=== PATIENT | female | born 1955 | race American Indian/Alaskan Native ===

== ENCOUNTER 2019-09-10 13:17 | Emergency (ER) | payer OTHER ==
[2019-09-10] MEDS ORDERED: Ketorolac 10 MG Tab PO ONE (13:18)
--- NOTE | 2019-09-10 13:44 | EDM.PDOC ---
ED HPI GENERAL MEDICAL PROBLEM - General Chief Complaint: Lower Extremity Injury/Pain Stated Complaint: "Left and right knee pain" Time Seen by Provider: 09/10/19 13:25 Source of Information: Reports: Patient History Limitations: Reports: No Limitations - History of Present Illness INITIAL COMMENTS - FREE TEXT/NARRATIVE: Patient to the emergency department where she advises that she thinks she tripped which caused her to fall on this past Thursday and today complains of increased pain to both knees and both ankles. The patient denies hitting her head, there is no loss of consciousness. The patient denies any unusual neck, back pain or stiffness she denies any hip or pelvis pain she denies any upper extremity pain that is not unusual. The patient has no numbness or tingling to her extremities. She does have some mild swelling to the left knee which she advises is somewhat chronic ever since she had surgery in 2013 on the knee. She denies any other symptoms. She denies being seen for these complaints after the fall. Onset: Sudden Duration: Day(s): (5 days ago) Location: Reports: Lower Extremity, Left, Lower Extremity, Right. Denies: Head , Neck, Chest, Abdomen, Back, Pelvis Quality: Reports: Ache Severity: Mild Improves with: Reports: None Worsens with: Reports: Movement Associated Symptoms: Reports: No Other Symptoms. Denies: Headaches, Nausea/ Vomiting, Weakness Treatments RIVET TESTER: Reports: NSAIDS - Related Data Allergies Allergy/AdvReac Type Severity Reaction Status Date / Time No Known Allergies Allergy Verified 09/10/19 14:10 Home Meds: Home Meds Celecoxib 200 mg PO DAILY 04/28/15 [History] Levothyroxine Sodium 1 tab PO DAILY 04/28/15 [History] Losartan/Hydrochlorothiazide [Losartan-HCTZ 100-25 MG] 1 each PO DAILY 04/28/15 [History] Potassium Chloride 1 tab PO DAILY 04/28/15 [History] Simvastatin 1 tab PO DAILY 04/28/15 [History] glipiZIDE [Glipizide ER] 1 tab PO DAILY 04/28/15 [History] metFORMIN [Glucophage] 1 tab PO BID 04/28/15 [History] Ferrous Sulfate [Feosol] 325 mg PO DAILY #30 tablet 05/02/15 [Rx] Review of Systems - Review of Systems Review Of Systems: See Below Constitutional: Reports: No Symptoms Respiratory: Reports: No Symptoms. Denies: Shortness of Breath Cardiovascular: Reports: No Symptoms. Denies: Chest Pain, Edema GI/Abdominal: Reports: No Symptoms. Denies: Abdominal Pain, Nausea, Vomiting Musculoskeletal: Reports: Joint Pain (bilateral knee and ankle pain). Denies: Neck Pain, Back Pain Skin: Reports: No Symptoms. Denies: Rash, Erythema, Wound, Change in Color Neurological: Reports: No Symptoms. Denies: Numbness, Tingling Psychiatric: Reports: No Symptoms ED EXAM, GENERAL - Physical Exam Exam: See Below Exam Limited By: No Limitations General Appearance: Alert, WD/WN, No Apparent Distress Ears: Normal External Exam Nose: Normal Inspection Throat/Mouth: Normal Inspection Head: Atraumatic, Normocephalic Neck: Normal Inspection, Supple, Non-Tender, Full Range of Motion Respiratory/Chest: No Respiratory Distress, Lungs Clear, Normal Breath Sounds Cardiovascular: Normal Peripheral Pulses, Regular Rate, Rhythm Peripheral Pulses: 2+: Radial (L), Posterior Tibial (L), Posterior Tibial (R) Extremities: Normal Range of Motion, No Pedal Edema, Normal Capillary Refill, Joint Swelling (left knee, advised this is chronic s/p surg left knee 2013) Neurological: Alert, Oriented, Normal Cognition, Normal Gait, No Motor/Sensory Deficits Psychiatric: Normal Affect, Normal Mood Skin Exam: Warm, Dry, Intact, Normal Color Course - Vital Signs Text/Narrative:: The patient was evaluated in the emergency department x-rays of both knees and both ankles were obtained is does not show any acute fracture dislocation there are some significant degenerative changes. The radiology reading is still pending. The patient will be discharged home she will be given Toradol 10 mg 3 times daily as needed. She is advised to follow-up in the clinic within the next week for reevaluation and return to the emergency department sooner if worse or any problems Last Recorded V/S: Last Vital Signs Temp 37.8 C 09/10/19 13:51 Pulse 104 H 09/10/19 13:51 Resp 20 09/10/19 13:51 BP 139/62 09/10/19 13:51 Pulse Ox 100 09/10/19 13:51 - Orders/Labs/Meds Orders: Active Orders 24 hr Category Date Time Status Ankle Min 3V Lt [CR] Stat Exams 09/10/19 13:34 Ordered Ankle Min 3V Rt [CR] Stat Exams 09/10/19 13:34 Ordered Knee 1V or 2V Lt [CR] Stat Exams 09/10/19 13:34 Ordered Knee 1V or 2V Rt [CR] Stat Exams 09/10/19 13:34 Ordered Ketorolac [Take Home: Ketorolac 10 MG, 4 Tab Pack] Med 09/10/19 14:12 Once 2 packet PO ONETIME ONE Medication Orders Ketorolac Tromethamine (Take Home: Ketorolac 10 Mg, 4 Tab Pack) 2 packet PO ONETIME ONE Stop: 09/10/19 14:13 Meds: Medications Generic Name Dose Route Start Last Admin Trade Name Freq PRN Reason Stop Dose Admin Ketorolac Tromethamine 2 packet 09/10/19 14:12 Take Home: Ketorolac 10 Mg, 4 Tab Pack PO 09/10/19 14:13 ONETIME ONE Departure - Departure Time of Disposition: 14:10 Disposition: Home, Self-Care 01 Condition: Good Clinical Impression: Fall, Knee sprain, bilateral, Right ankle sprain, Left ankle sprain - Discharge Information *PRESCRIPTION DRUG MONITORING PROGRAM REVIEWED*: Not Applicable *COPY OF PRESCRIPTION DRUG MONITORING REPORT IN PATIENT JUHI: Not Applicable Instructions: Ankle Sprain, [id number], Knee Sprain, Adult Forms: ED Department Discharge Additional Instructions: Rest Toradol 10 mg every 8 hours as needed for pain Follow-up in the clinic over the next week for reevaluation Return to the emergency department sooner if worse or any problems Sepsis Event Note - Focused Exam Vital Signs: Vital Signs Temp Pulse Resp BP Pulse Ox 09/10/19 13:51 37.8 C 104 H 20 139/62 100 Date Exam was Performed: 09/10/19 Time Exam was Performed: 14:13 - Problem List & Annotations (1) Fall SNOMED Code(s): 8362961, 013507290 Code(s): W19.XXXA - UNSPECIFIED FALL, INITIAL ENCOUNTER Status: Acute Priority: Medium Qualifiers: Encounter type: initial encounter Qualified Code(s): W19.XXXA - Unspecified fall, initial encounter (2) Knee sprain, bilateral SNOMED Code(s): 08195270 Code(s): S83.91XA - SPRAIN OF UNSPECIFIED SITE OF RIGHT KNEE, INITIAL ENCOUNTER; S83.92XA - SPRAIN OF UNSPECIFIED SITE OF LEFT KNEE, INITIAL ENCOUNTER Status: Acute Priority: Medium (3) Left ankle sprain SNOMED Code(s): 72653163, [id number] Code(s): S93.402A - SPRAIN OF UNSPECIFIED LIGAMENT OF LEFT ANKLE, INIT ENCNTR Status: Acute Priority: Medium Qualifiers: Encounter type: initial encounter (4) Right ankle sprain SNOMED Code(s): 68328158 Code(s): S93.401A - SPRAIN OF UNSPECIFIED LIGAMENT OF RIGHT ANKLE, INIT ENCNTR Status: Acute Priority: Medium Qualifiers: Encounter type: initial encounter - Problem List Review Problem List Initiated/Reviewed/Updated: Yes - My Orders Last 24 Hours: My Active Orders 09/10/19 13:34 Ankle Min 3V Lt [CR] Stat Ankle Min 3V Rt [CR] Stat Knee 1V or 2V Lt [CR] Stat Knee 1V or 2V Rt [CR] Stat 09/10/19 14:12 Ketorolac [Take Home: Ketorolac 10 MG, 4 Tab Pack] 2 packet PO ONETIME ONE - Assessment/Plan Last 24 Hours: My Active Orders 09/10/19 13:34 Ankle Min 3V Lt [CR] Stat Ankle Min 3V Rt [CR] Stat Knee 1V or 2V Lt [CR] Stat Knee 1V or 2V Rt [CR] Stat 09/10/19 14:12 Ketorolac [Take Home: Ketorolac 10 MG, 4 Tab Pack] 2 packet PO ONETIME ONE Plan: As above
[2019-09-10 13:52] VITALS: BP 139/62; PULSE 104
[2019-09-10] MEDS ORDERED: Take Home: Ketorolac 10 MG Tab, 4 Tab Pack PO ONE (14:12)
== END 2019-09-10 14:37 | disposition home or self-care (01) ==
LOC: CC.ED 13:17
DX: S93.401A Sprain of unspecified ligament of right ankle, initial encounter (principal); S93.402A Sprain of unspecified ligament of left ankle, initial encounter; S83.91XA Sprain of unspecified site of right knee, initial encounter; S83.92XA Sprain of unspecified site of left knee, initial encounter; Z79.899 Other long term (current) drug therapy; W01.0XXA Fall on same level from slipping, tripping and stumbling without subsequent striking against object, initial encounter
CPT/HCPCS: 73560-LT; 73560-RT; 73610-LT; 73610-RT; 99283-25; A9270-GY

== ENCOUNTER → 2022-08-29 | Day surgery (SDC) | payer MEDICARE, OTHER ==
[~2022-08-29] MED LIST: Lidocaine 2% 20 ML MDV ONE; Midazolam 1 MG/ML 2 ML SDV ONE; Propofol 200 MG/20 ML SDV ONE; fentaNYL 50 MCG/ML SDV ONE
[2022-08-29] MEDS: Lactated Ringers 1,000 ML IV SCH (07:44)
[2022-08-29 10:05] VITALS: BP 100/62; PULSE 63
== END ==
LOC: CC.SDS 07:15
PROVIDERS: ATTEND Family Medicine
DX: Z12.11 Encounter for screening for malignant neoplasm of colon (principal); K29.50 Unspecified chronic gastritis without bleeding; K31.89 Other diseases of stomach and duodenum; K21.00 Gastro-esophageal reflux disease with esophagitis, without bleeding; K57.30 Diverticulosis of large intestine without perforation or abscess without bleeding; D50.9 Iron deficiency anemia, unspecified; F32.A Depression, unspecified; I10 Essential (primary) hypertension; E78.5 Hyperlipidemia, unspecified; E03.9 Hypothyroidism, unspecified; E11.9 Type 2 diabetes mellitus without complications; Z79.84 Long term (current) use of oral hypoglycemic drugs; Z79.899 Other long term (current) drug therapy
CPT/HCPCS: 87081; 88305; J2250; J2704; J3010; J3490; J7120

== ENCOUNTER 2024-04-18 22:04 | Emergency (ER) | payer MEDICARE, OTHER ==
[2024-04-18 22:53] VITALS: PULSE 75
[2024-04-18] MEDS: Losartan 25 MG Tab PO SCH (22:57)
[2024-04-18 22:58] VITALS: BP 167/77
[2024-04-18] MEDS: Acetaminophen/HYDROcodone 325-5 MG Tab PO ONE (22:58)
[2024-04-18] MEDS: Take Home: Acetaminophen/HYDROcodone 325-5 MG, 2 Tab Pack PO ONE (22:58)
== END 2024-04-18 23:11 | disposition home or self-care (01) ==
LOC: CC.ED 22:04
DX: S56.911A Strain of unspecified muscles, fascia and tendons at forearm level, right arm, initial encounter (principal); E11.9 Type 2 diabetes mellitus without complications; E78.00 Pure hypercholesterolemia, unspecified; I10 Essential (primary) hypertension; Z79.899 Other long term (current) drug therapy; X50.9XXA Other and unspecified overexertion or strenuous movements or postures, initial encounter
CPT/HCPCS: 73080-RT; 99283; A9270-GY

== ENCOUNTER 2025-04-24 14:34 | Inpatient (IN) | payer MEDICARE, OTHER ==
[2025-04-24] MEDS ORDERED: Ondansetron 4 MG/2 ML SDV IV PRN (14:53)
[2025-04-24] MEDS ORDERED: Ondansetron 4 MG Tab.DIS PO PRN (14:53)
[2025-04-24] MEDS ORDERED: 50% Dextrose in Water 50 ML Syringe IVPUSH PRN (15:11)
[2025-04-24] MEDS ORDERED: Clotrimazole 1% Crm 30 GM Tube TOP PRN (18:34)
[2025-04-24] MEDS: methylPREDNISolone Sodium Succinate 125 MG/2 ML SDV IVPUSH SCH (19:28)
[2025-04-24] MEDS: Lactobacillus Rhamnosus GG (Probiotic) Cap PO SCH (19:29)
[2025-04-24] MEDS: Insulin Glarg,Human.Rec.Analog 100 Unit/ML 10 ML Vial SUBCUT SCH (19:38)
[2025-04-25 07:16] LABS: BASOPHILS ABSOLUTE AUTO 0.01 10^3/uL (0.00-0.50); BASOPHILS PERCENT AUTO 0.3 % (0-1); EOSINOPHILS ABSOLUTE AUTO 0.00 10^3/uL (0.00-1.50); EOSINOPHILS PERCENT AUTO 0.0 % (0-6); IMMATURE GRAN ABSOLUTE AUTO 0.02 10^3/uL (0.00-0.49); IMMATURE GRAN PERCENT AUTO 0.5 % (0.0-4.9); LYMPHOCYTES ABSOLUTE AUTO 0.41 10^3/uL (0.60-5.00); LYMPHOCYTES PERCENT AUTO 11.1 % (24-44); MONOCYTES ABSOLUTE AUTO 0.08 10^3/uL (0.00-1.50); MONOCYTES PERCENT AUTO 2.2 % (0-10); NEUTROPHILS ABSOLUTE AUTO 3.16 x10^3/uL (1.80-8.00); NEUTROPHILS PERCENT AUTO 85.9 % (41-71); PLATELET COUNT,PLT 162 10^3/uL (150-400); RED BLOOD CELL COUNT 3.43 x10^6/uL (4.00-5.50); WHITE BLOOD CELL COUNT,WBC 3.7 10^3/uL (4.0-11.0)
[2025-04-25 07:40] LABS: ALANINE AMINOTRANSFERASE,ALT 18.0 U/L (12-78); ASPARTATE AMNIOTRANSFERASE,AST 12.0 U/L (15-37); BILIRUBIN TOTAL 1.0 mg/dL (0.0-1.0); BLOOD UREA NITROGEN,BUN 25.0 mg/dL (7-18); CARBON DIOXIDE,CO2 23.0 mmol/L (21-32); CHLORIDE,CL 106.0 mEq/L (98-106); CREATININE 1.2 mg/dL (0.6-1.0); EST CRCL DRUG DOSING (CG) 40.94 mL/min; GLUCOSE RANDOM 254.0 mg/dL (75-99); POTASSIUM,K 4.5 mEq/L (3.5-5.0); PROTEIN TOTAL,TP 6.3 g/dL (6.4-8.2); SODIUM,NA 140.0 mEq/L (136-145)
[2025-04-25 07:43] LABS: ESTIMATED GFR 50.0 mL/min (>=60)
[2025-04-25] MEDS: Vitamin B Complex Cap PO SCH (08:00)
[2025-04-25] MEDS: Ferrous Sulfate 324 MG Tab.EC PO SCH (08:00)
[2025-04-25] MEDS: Potassium Chloride 10 MEQ Tab.ER PO SCH (08:00)
[2025-04-26 07:51] LABS: BASOPHILS ABSOLUTE AUTO 0.01 10^3/uL (0.00-0.50); BASOPHILS PERCENT AUTO 0.2 % (0-1); EOSINOPHILS ABSOLUTE AUTO 0.00 10^3/uL (0.00-1.50); EOSINOPHILS PERCENT AUTO 0.0 % (0-6); IMMATURE GRAN ABSOLUTE AUTO 0.01 10^3/uL (0.00-0.49); IMMATURE GRAN PERCENT AUTO 0.2 % (0.0-4.9); LYMPHOCYTES ABSOLUTE AUTO 0.56 10^3/uL (0.60-5.00); LYMPHOCYTES PERCENT AUTO 8.9 % (24-44); MONOCYTES ABSOLUTE AUTO 0.20 10^3/uL (0.00-1.50); MONOCYTES PERCENT AUTO 3.2 % (0-10); NEUTROPHILS ABSOLUTE AUTO 5.54 x10^3/uL (1.80-8.00); NEUTROPHILS PERCENT AUTO 87.5 % (41-71); PLATELET COUNT,PLT 173 10^3/uL (150-400); RED BLOOD CELL COUNT 3.37 x10^6/uL (4.00-5.50); WHITE BLOOD CELL COUNT,WBC 6.3 10^3/uL (4.0-11.0)
[2025-04-26 08:20] LABS: ALANINE AMINOTRANSFERASE,ALT 92.0 U/L (12-78); ASPARTATE AMNIOTRANSFERASE,AST 91.0 U/L (15-37); BILIRUBIN TOTAL 0.6 mg/dL (0.0-1.0); BLOOD UREA NITROGEN,BUN 26.0 mg/dL (7-18); CARBON DIOXIDE,CO2 23.0 mmol/L (21-32); CHLORIDE,CL 108.0 mEq/L (98-106); CREATININE 1.0 mg/dL (0.6-1.0); EST CRCL DRUG DOSING (CG) 49.12 mL/min; GLUCOSE RANDOM 254.0 mg/dL (75-99); POTASSIUM,K 4.1 mEq/L (3.5-5.0); PROTEIN TOTAL,TP 6.0 g/dL (6.4-8.2); SODIUM,NA 142.0 mEq/L (136-145)
[2025-04-26 08:35] LABS: ESTIMATED GFR 62.0 mL/min (>=60)
[2025-04-26] MEDS ORDERED: Lactated Ringers 1,000 ML IV SCH (13:00)
[2025-04-26 13:16] VITALS: BP 155/74; PULSE 69
== END 2025-04-26 14:15 | disposition home or self-care (01) | DRG 690 ==
LOC: CC.MS 14:34 → UNDOADMIN 14:34 → CC.MS 14:53
PROVIDERS: ADMIT Family Medicine; ATTEND Family Medicine
PROC: 0DB78ZX Excision of Stomach, Pylorus, Via Natural or Artificial Opening Endoscopic, Diagnostic (ICD-10-PCS; principal; 2025-04-24)
PROC: 0DB98ZX Excision of Duodenum, Via Natural or Artificial Opening Endoscopic, Diagnostic (ICD-10-PCS; principal; 2025-04-24)
DX: N39.0 Urinary tract infection, site not specified (principal); M12.9 Arthropathy, unspecified; D50.9 Iron deficiency anemia, unspecified; K29.50 Unspecified chronic gastritis without bleeding; M81.0 Age-related osteoporosis without current pathological fracture; M50.90 Cervical disc disorder, unspecified, unspecified cervical region; F32.A Depression, unspecified; K25.9 Gastric ulcer, unspecified as acute or chronic, without hemorrhage or perforation; I10 Essential (primary) hypertension; E21.3 Hyperparathyroidism, unspecified; E78.00 Pure hypercholesterolemia, unspecified; E03.9 Hypothyroidism, unspecified; M17.9 Osteoarthritis of knee, unspecified; E11.9 Type 2 diabetes mellitus without complications; E53.8 Deficiency of other specified B group vitamins; Z79.899 Other long term (current) drug therapy; Z79.84 Long term (current) use of oral hypoglycemic drugs; Z79.4 Long term (current) use of insulin; Z96.659 Presence of unspecified artificial knee joint
CPT/HCPCS: 36415; 80053; 82270; 83605; 85025; 86140; 87040; 87077; 97161-GP; A9270-GY; J0696; J1815-GY; J2470; J2919; J7030